=== PATIENT | female | born 1935 | race African-American/Black ===

== ENCOUNTER 2020-11-04 21:36 | Inpatient (IN) | payer MEDICARE, OTHER ==
[~2020-11-04] VITALS: Ht 157.5 cm; Wt 50.3 kg
--- NOTE | 2020-11-04 21:36 | NUR ---
BIBRA FROM [facility] ALTERED MORE THAN USUAL WITH R ARM AND LEG INVOLUTARY MOVEMENT STARTED AT 8:30PM. PT TO BED 6, PT [id number], -SOB, NAD. VSS. PENDING ER PROVIDER KENNETH
--- NOTE | 2020-11-04 22:12 | NUR ---
URINE COLLECTED AND SENT TO LAB, PT WAS TAKEN TO CT
--- NOTE | 2020-11-04 22:12 | NUR ---
pt to ct
[2020-11-04 22:20] LABS: EOSINOPHILS % (AUTO) 1.5 % (0.0-6.0); HEMATOCRIT 36 % (33-45); HEMOGLOBIN 11.7 g/dL (11.5-14.8); LYMPHOCYTES # (AUTO) 1.7 /CMM (0.8-4.8); LYMPHOCYTES % (AUTO) 44.4 % (20.0-44.0); MEAN CORPUSCULAR HGB CONC 33 g/dl (31.0-36.0); MEAN CORPUSCULAR VOLUME 91 fL (82-100); MONOCYTES # (AUTO) 0.3 /CMM (0.1-1.30); NEUTROPHILS # (AUTO) 1.8 /CMM (1.8-8.9); NEUTROPHILS % (AUTO) 45.1 % (43.0-81.0); PLATELET COUNT (AUTO) 268 /CMM (150-450); RED BLOOD CELL COUNT(AUTO) 3.91 MIL/uL (4.0-5.2); WHITE BLOOD COUNT (AUTO) 3.9 K/uL (4.3-11.0)
[2020-11-04 22:31] LABS: CALCIUM, SERUM 8.7 mg/dL (8.5-10.1); CARBON DIOXIDE 28 mmol/L (21-32); CHLORIDE 102 mmol/L (98-107); GLUCOSE 87 mg/dL (74-106); POTASSIUM 3.9 mmol/L (3.5-5.1); SODIUM SERUM 135 mmol/L (136-145); UREA NITROGEN, BLOOD 13 mg/dL (7-18)
[2020-11-04 22:40] LABS: BILIRUBIN,URINE NEGATIVE (NEGATIVE); COLOR,URINE YELLOW (YELLOW); LEUKOCYTE ESTERASE ,URINE LARGE (NEGATIVE); NITRITE, URINE NEGATIVE (NEGATIVE); PROTEIN,URINE 30 mg/dl (NEGATIVE); UGLUCOSE NEGATIVE (NEGATIVE); UROBILINOGEN,URINE 0.2 EU/dL (0.2)
[2020-11-04 22:42] LABS: BACTERIA,URINE Moderate /HPF (None Seen); SQUAMOUS EPITHELIAL CELL,UR Few /HPF (None Seen); WBC,URINE TOO NUMEROUS TO COUN /HPF (0-3)
[2020-11-04 22:45] LABS: ALANINE AMINOTRANSFERASE 13 U/L (12-78); ALBUMIN 2.7 g/dL (3.4-5.0); ALKALINE PHOSPHATASE 72 U/L (46-116); ASPARTATE AMINOTRANSFERASE 15 U/L (15-37); BILIRUBIN,DIRECT 0.1 mg/dL (0.0-0.2); BILIRUBIN,TOTAL 0.4 mg/dL (0.2-1.0)
--- NOTE | 2020-11-04 23:21 | NUR ---
TELE BED: 114-1
--- NOTE | 2020-11-04 23:23 | NUR ---
CALL FROM LAB: COVID NEGATIVE
[2020-11-04] MEDS ORDERED: LEVOFLOXACIN 750 MG /D5W 150ML 150 ML IV ONE (23:28)
[2020-11-04] MEDS ORDERED: LEVOFLOXACIN 750 MG /D5W 150ML PIGGYBACK IV ONE (23:30)
--- NOTE | 2020-11-04 23:34 | NUR ---
update daughter martin re: patient.
[2020-11-05] VITALS: BP 129/49
[2020-11-05] MEDS ORDERED: MAG HYDROX/AL HYDROX/SIMETH 30 ML UDC PO PRN
[2020-11-05] MEDS ORDERED: ACETAMINOPHEN 325 MG TABLET PO PRN
[2020-11-05] MEDS ORDERED: LEVOFLOXACIN 500 MG /D5W 100ML 500 MG in PREMIX 1 EA IV SCH
[2020-11-05] MEDS ORDERED: Z GUARD REMEDY 2 OZ OINT TP PRN
[2020-11-05] MEDS ORDERED: MAGNESIUM HYDROXIDE 30 ML UDC PO PRN
[2020-11-05] MEDS ORDERED: ONDANSETRON HCL/PF 4 MG/2 ML VIAL IVP PRN
--- NOTE | 2020-11-05 | NUR ---
RN OPENING NOTE ADMIT 85 YEAR FEMALE FROM EMERGENCY UNIT TO DEION UNIT ROOM 114,ALERT CONFUSED VERBALLY RESPONSIVE,ON ROOM AIR O2:97% FALL RISK,DIAGNOSIS:ALTERED MENTAL STATUS SECONDARY TO UTI,REDNESS ON PERINEAL AREA AND BUTTOCKS,TOOK PICTURES AND PLACED ON CHART,IV SITE IS IN RIGHT FOREARM INTACT PATENT,BED IN LOW POSITION AND LOCKED,BED ALARM IS ON,SAFETY MEASURE IMPLEMENT CONTINUE TO MONITOR.
[2020-11-05] MEDS ORDERED: CRAN425C6 PO (00:02)
[2020-11-05] MEDS ORDERED: HYDR-4303 PO (00:02)
[2020-11-05] MEDS ORDERED: MIRT-121 PO (00:02)
[2020-11-05] MEDS ORDERED: GUAI100G PO (00:02)
[2020-11-05] MEDS ORDERED: LEVO75TA7 PO (00:02)
[2020-11-05] MEDS ORDERED: LIDO30CR47 TP (00:02)
[2020-11-05] MEDS ORDERED: FLUT9.9S NS (00:02)
[2020-11-05] MEDS ORDERED: DONE10TA11 PO (00:02)
[2020-11-05] MEDS ORDERED: CRAN3875 PO (00:02)
[2020-11-05] MEDS ORDERED: CYCL30DR EACHEYE (00:02)
[2020-11-05] MEDS ORDERED: AMIN30LI27 PO (00:02)
[2020-11-05] MEDS ORDERED: POTA20TA83 PO (00:02)
[2020-11-05] MEDS ORDERED: LOPE2CAP PO (00:02)
[2020-11-05] MEDS ORDERED: MAGN400O21 PO (00:02)
[2020-11-05] MEDS ORDERED: MONT10TA22 PO (00:02)
[2020-11-05] MEDS ORDERED: NYST15CR2 TP (00:02)
[2020-11-05] MEDS ORDERED: FERR325T23 PO (00:02)
[2020-11-05] MEDS ORDERED: GLUC-228 PO (00:02)
[2020-11-05] MEDS ORDERED: LACT30003 PO (00:02)
[2020-11-05] MEDS ORDERED: RHUB4TAB PO (00:02)
[2020-11-05] MEDS ORDERED: FAMO-131 PO (00:02)
[2020-11-05] MEDS ORDERED: CHOL4PAC2 PO (00:02)
[2020-11-05] MEDS ORDERED: MULT-213 PO (00:02)
[2020-11-05] MEDS ORDERED: ALPR0.25 PO (00:02)
[2020-11-05] MEDS ORDERED: OXYB10TA30 PO (00:02)
[2020-11-05] MEDS ORDERED: CALC-883 PO (00:02)
[2020-11-05] MEDS ORDERED: SENN-261 PO (00:02)
[2020-11-05] MEDS ORDERED: HYDR-3980 PO (00:02)
[2020-11-05] MEDS ORDERED: CARB50DR OP (00:02)
[2020-11-05] MEDS ORDERED: ALEN70TA3 PO (00:02)
[2020-11-05] MEDS ORDERED: OMEG1CAP PO (00:02)
--- NOTE | 2020-11-05 00:05 | NUR ---
REPORT GIVEN TO JAMIN AJ FOR ARMANDO PT TRANSPORTED TO 1ST FLOOR
[2020-11-05] MEDS: ENOXAPARIN SODIUM 40 MG/0.4 ML DISP.SYRIN SQ SCH ×2 (00:18→21:34)
--- NOTE | 2020-11-05 03:38 | NUR ---
RN NOTE ASKED PLASTIC EXTRUDING MACHINE OPERATOR ARMANDO JANE ANY IV FLUID FOR THIS PATIENT BECAUSE DIAGNOSIS UTI SHE SAID NO BECAUSE PT HAS SOME CARDIOMEGALY SO DON'T WANT TO PUT IN HF CONTINUE TO MONITOR
[2020-11-05 04:00] VITALS: BP 122/66
[2020-11-05 06:10] LABS: BASOPHILS % (AUTO) 0.7 % (0.0-2.0); EOSINOPHILS % (AUTO) 1.1 % (0.0-6.0); HEMATOCRIT 34 % (33-45); HEMOGLOBIN 11.2 g/dL (11.5-14.8); LYMPHOCYTES # (AUTO) 1.4 /CMM (0.8-4.8); LYMPHOCYTES % (AUTO) 44.2 % (20.0-44.0); MEAN CORPUSCULAR HGB CONC 33 g/dl (31.0-36.0); MEAN CORPUSCULAR VOLUME 91 fL (82-100); MONOCYTES # (AUTO) 0.2 /CMM (0.1-1.30); MONOCYTES % (AUTO) 7.6 % (2.0-12.0); NEUTROPHILS # (AUTO) 1.5 /CMM (1.8-8.9); NEUTROPHILS % (AUTO) 46.4 % (43.0-81.0); PLATELET COUNT (AUTO) 236 /CMM (150-450); RED BLOOD CELL COUNT(AUTO) 3.74 MIL/uL (4.0-5.2); WHITE BLOOD COUNT (AUTO) 3.2 K/uL (4.3-11.0)
--- NOTE | 2020-11-05 06:26 | NUR ---
RN CLOSING NOTE PATIENT REMAINS ON ALERT CONFUSED VERBALLY RESPONSIVE NO SOB NOT ACUTE DISTRESS NOTED,ON ROOM AIR O2:96% IV SITE IS ON RIGHT FOREARM INTACT PATENT,INCONTINENT TO BOWEL/BLADDER,KEPT COMFORTABLE ,SAFETY MEASURE IMPLEMENT,BED ALARM IS ON,ALL NEEDS MET ENDORSE NEXT COMING SHIFT FOR CONTINUATION OF CARE.
[2020-11-05 06:51] LABS: CALCIUM, SERUM 8.2 mg/dL (8.5-10.1); CREATININE 0.8 mg/dL (0.6-1.3); MAGNESIUM 1.9 mg/dL (1.8-2.4); PHOSPHORUS 4.2 mg/dL (2.5-4.9); POTASSIUM 4.6 mmol/L (3.5-5.1)
[2020-11-05 07:05] LABS: THYROID STIMULATING HORMONE 1.681 uIU/mL (0.358-3.74)
--- NOTE | 2020-11-05 07:30 | NUR ---
RN OPENING NOTE Patient is alert and oriented x 1/2. Patient is breathing even and unlabored. Right forearm 18 gauze noted with no s/s of infiltration or s/s of infection. On room air at 97% 02 saturation. Bed is in lowest and locked position. Call light with in reach.
[2020-11-05] MEDS: PANTOPRAZOLE 40 MG TABLET.DR PO SCH (07:53)
[2020-11-05 08:00] VITALS: BP 102/60
[2020-11-05] MEDS ORDERED: FAMOTIDINE (20 MG) 20 MG TABLET PO SCH (11:30)
[2020-11-05] MEDS ORDERED: SENNOSIDES 8.6 MG TABLET PO PRN (11:30)
[2020-11-05] MEDS ORDERED: Medication Not On Formulary EA (Cyclosporine (Restasis) 1 DROP) EACHEYE SCH (11:30)
[2020-11-05] MEDS ORDERED: ALPRAZOLAM 0.25 MG TABLET PO PRN (11:30)
[2020-11-05 12:00] VITALS: BP 112/70
[2020-11-05] MEDS: LEVOTHYROXINE SODIUM 75 MCG TABLET PO SCH (12:02)
[2020-11-05] MEDS: MULTIVIT W/MINERALS 1 TAB TABLET PO SCH (12:03)
[2020-11-05] MEDS: FERROUS SULFATE (325 MG) 325 MG/TAB TABLET PO SCH (12:03)
[2020-11-05] MEDS: OXYBUTYNIN CHLORIDE ER 5 MG TAB PO SCH (12:03)
[2020-11-05] MEDS: CALCIUM CARB 600MG /VIT D 1 EACH TABLET PO SCH (12:04)
[2020-11-05] MEDS: GUAIFENESIN LA 600 MG TABLET.SA PO SCH ×2 (12:04→21:35)
[2020-11-05] MEDS ORDERED: POLYVINYL ALCOHOL/POVIDONE 0.4 ML DROPERETTE EACHEYE SCH (13:00)
[2020-11-05] MEDS: POLYVINYL ALCOHOL 15 ML BOTTLE EACHEYE SCH ×3 (14:40→21:32)
[2020-11-05] MEDS: NYSTATIN/TRIAMCIN CREAM 15 GM TUBE TP SCH (14:41)
[2020-11-05] MEDS: PROSTAT (PYXIS) 30 ML UDC PO SCH (17:00)
[2020-11-05] MEDS: FLUTICASONE PROPIONATE 16 GM BOTTLE NS SCH (17:00)
--- NOTE | 2020-11-05 18:59 | NUR ---
RN CLOSING NOTE Patient is alert and oriented x 1/2. Patient is breathing even and unlabored. No s/s of respiratory distress noted. Patient's hob elevated. Will continue to monitor. Call light with in reach. Will endorse to next shift for ARMANDO.
--- NOTE | 2020-11-05 19:30 | NUR ---
RN OPENING NOTE REC'D PT IN BED, A/O X1, PT RESPONDS TO NAME. ABNORMAL ARM/FACIAL MOVEMENTS, ENDORSED BY DAY SHIFT. PT IS ON ROOM AIR TOLERATING WELL. NO DISTRESS NOTED. ON M/S MONITORING. NO S/S OF PAIN NOTED. IV SITE, FLUSHED. SAFETY MEASURES IN PLACE. HOB ELEVATED TOLERATED. SIDE RAILS UP X2, BED LOCKED IN LOWEST POSITION CALL LIGHT WITHIN REACH. WILL CONT TO MONITOR CLOSELY.
[2020-11-05 20:00] VITALS: BP_SYST 90; BP_SYST 99; BP_DIAS 53; BP_DIAS 69
--- NOTE | 2020-11-05 20:15 | NUR ---
RN NOTE PT DAUGHTERDELANO CALLED FOR UPDATE.
[2020-11-05] MEDS: MONTELUKAST SODIUM (10MG) 10 MG TABLET PO SCH (21:35)
[2020-11-05] MEDS: DONEPEZIL 5 MG TABLET PO SCH (21:35)
[2020-11-05] MEDS: MIRTAZAPINE 15 MG TABLET PO SCH (21:35)
[2020-11-06 04:00] VITALS: BP 102/69
--- NOTE | 2020-11-06 05:08 | NUR ---
MADAI ROLLINS FROM LAB CALLED COVID PCR RESULT NEGATIVE.
--- NOTE | 2020-11-06 06:55 | NUR ---
RN CLOSING NOTES NO CHANGE IN PT CONDITION. PT REMAINS ON ON ROOM AIR. NO S/S OF DISTRESS NOTED. PT COOPERATIVE WITH CARE. SAFETY MEASURES IN PLACE HOB ELEVATED. SIDE RAILS UP X2 BED LOCKED IN LOWEST POSITION WITH BED ALARM PSYCHIATRIC CNS LIGHT WITHIN REACH. WILL ENDORSE TO AM SHIFT FOR CONTINUATION OF CARE.
--- NOTE | 2020-11-06 07:31 | NUR ---
MS RN NOTE PAT IN BED RESTING COMFORTABLY, PT IS ON ROOM AIR TOLERATING WELL ,NO S/S OF PAIN NOTED. LT FA HL IV IN PLACED ,SAFETY MEASURES IN PLACE. HOB ELEVATED TOLERATED. SIDE RAILS UP X2, BED LOCKED IN LOWEST POSITION CALL LIGHT WITHIN REACH. WILL CONT TO MONITOR CLOSELY.
[2020-11-06] MEDS: PANTOPRAZOLE 40 MG TABLET.DR PO SCH (07:47)
[2020-11-06] MEDS: LEVOTHYROXINE SODIUM 75 MCG TABLET PO SCH (07:48)
[2020-11-06] MEDS: GUAIFENESIN LA 600 MG TABLET.SA PO SCH ×2 (08:50→21:49)
[2020-11-06] MEDS: OXYBUTYNIN CHLORIDE ER 5 MG TAB PO SCH (08:50)
[2020-11-06] MEDS: FERROUS SULFATE (325 MG) 325 MG/TAB TABLET PO SCH (08:51)
[2020-11-06] MEDS: MULTIVIT W/MINERALS 1 TAB TABLET PO SCH (08:51)
[2020-11-06] MEDS: PROSTAT (PYXIS) 30 ML UDC PO SCH (08:51)
[2020-11-06] MEDS: NYSTATIN/TRIAMCIN CREAM 15 GM TUBE TP SCH (08:52)
[2020-11-06] MEDS: POLYVINYL ALCOHOL 15 ML BOTTLE EACHEYE SCH ×4 (08:52→21:46)
[2020-11-06] MEDS: CALCIUM CARB 600MG /VIT D 1 EACH TABLET PO SCH (08:53)
[2020-11-06] MEDS: FLUTICASONE PROPIONATE 16 GM BOTTLE NS SCH ×2 (08:59→16:59)
--- NOTE | 2020-11-06 10:09 | NUR ---
ms rn note seen by pt able to to do pt eval ,able to exercise in bed
[2020-11-06] MEDS: ENSURE ENLIVE 237 ML LIQUID (VANILLA) PO SCH ×2 (12:10→17:00)
--- NOTE | 2020-11-06 14:30 | NUR ---
ms rn note patient is mrsa nares called to marcello Mendez rn dnp ok to place Bactroban oint ,order carried out
[2020-11-06 16:00] VITALS: BP 106/77
[2020-11-06] MEDS: MUPIROCIN OINT 2% 22 GM TUBE TP SCH (17:00)
--- NOTE | 2020-11-06 18:00 | NUR ---
MS RN NOTE ALL NEEDS ATTENDED ,HAVING DINNER , ABLE TO EAT SELF
--- NOTE | 2020-11-06 18:33 | NUR ---
MS RN NOTE PATIENT IN BED ALERT WITH CONFUSION , ON RA ,NO SOB NOTED AT THIS TIME, BED IN LOWEST AND LOCKED POSITION , CALL LIGHT WITHIN REACH,, WILL CONT TO MONITOR
[2020-11-06 20:00] VITALS: BP 111/93
[2020-11-06] MEDS: MONTELUKAST SODIUM (10MG) 10 MG TABLET PO SCH (21:49)
[2020-11-06] MEDS: DONEPEZIL 5 MG TABLET PO SCH (21:49)
[2020-11-06] MEDS: ENOXAPARIN SODIUM 40 MG/0.4 ML DISP.SYRIN SQ SCH (21:50)
[2020-11-06] MEDS: MIRTAZAPINE 15 MG TABLET PO SCH (21:55)
[2020-11-07] MEDS ORDERED: LEVOFLOXACIN 750 MG /D5W 150ML 750 MG in PREMIX 1 EA IV SCH
[2020-11-07 04:00] VITALS: BP 119/65
--- NOTE | 2020-11-07 05:01 | NUR ---
RN notes In bed resting comfortably with no distress noted. On room air, tolerating well. Breathing even and unlabored. Alert with confusion and disorientation. No complaint of pain or discomfort. No significant change of condition. Kept clean and dry. W8ill endorse to next shift for continuity of care.
[2020-11-07 06:29] LABS: BASOPHILS % (AUTO) 0.6 % (0.0-2.0); EOSINOPHILS % (AUTO) 1.6 % (0.0-6.0); HEMATOCRIT 33 % (33-45); HEMOGLOBIN 10.9 g/dL (11.5-14.8); LYMPHOCYTES # (AUTO) 1.3 /CMM (0.8-4.8); LYMPHOCYTES % (AUTO) 40.1 % (20.0-44.0); MEAN CORPUSCULAR HGB CONC 33 g/dl (31.0-36.0); MEAN CORPUSCULAR VOLUME 91 fL (82-100); MONOCYTES # (AUTO) 0.3 /CMM (0.1-1.30); MONOCYTES % (AUTO) 10.2 % (2.0-12.0); NEUTROPHILS # (AUTO) 1.5 /CMM (1.8-8.9); NEUTROPHILS % (AUTO) 47.5 % (43.0-81.0); PLATELET COUNT (AUTO) 230 /CMM (150-450); RED BLOOD CELL COUNT(AUTO) 3.65 MIL/uL (4.0-5.2); WHITE BLOOD COUNT (AUTO) 3.2 K/uL (4.3-11.0)
[2020-11-07 06:53] LABS: CALCIUM, SERUM 8.2 mg/dL (8.5-10.1); CARBON DIOXIDE 27 mmol/L (21-32); CHLORIDE 105 mmol/L (98-107); CREATININE 0.5 mg/dL (0.6-1.3); GLUCOSE 99 mg/dL (74-106); MAGNESIUM 1.8 mg/dL (1.8-2.4); PHOSPHORUS 3.8 mg/dL (2.5-4.9); POTASSIUM 3.7 mmol/L (3.5-5.1); SODIUM SERUM 139 mmol/L (136-145); UREA NITROGEN, BLOOD 15 mg/dL (7-18)
[2020-11-07] MEDS: LEVOTHYROXINE SODIUM 75 MCG TABLET PO SCH (07:30)
[2020-11-07] MEDS: PANTOPRAZOLE 40 MG TABLET.DR PO SCH (07:30)
--- NOTE | 2020-11-07 07:50 | NUR ---
RN OPENING NOTE PATIENT IS CURRENTLY IN BED WITH HOB AT SEMI FOWLERS POSITION. PATIENT IS ON ROOM AIR WITH NO SIGNS OF LABORED BREATHING. PATIENT IS AOX1. LFA #22 IS PATENT AND INTACT. BED IS LOCKED IN THE LOWEST POSITION, 3 GUARD RAILS RAISED, CALL ROOT WITHIN REACH, AND ALL HOSPITAL SAFETY PRECAUTIONS ARE BEING FOLLOWED. WILL CONTINUE TO MONITOR THROUGHOUT SHIFT.
[2020-11-07 08:00] VITALS: BP 129/57
[2020-11-07] MEDS: GUAIFENESIN LA 600 MG TABLET.SA PO SCH (08:10)
[2020-11-07] MEDS: CALCIUM CARB 600MG /VIT D 1 EACH TABLET PO SCH (08:10)
[2020-11-07] MEDS: OXYBUTYNIN CHLORIDE ER 5 MG TAB PO SCH (08:11)
[2020-11-07] MEDS: MULTIVIT W/MINERALS 1 TAB TABLET PO SCH (08:11)
[2020-11-07] MEDS: FERROUS SULFATE (325 MG) 325 MG/TAB TABLET PO SCH (08:11)
[2020-11-07] MEDS: POLYVINYL ALCOHOL 15 ML BOTTLE EACHEYE SCH ×2 (08:30→13:08)
[2020-11-07] MEDS: FLUTICASONE PROPIONATE 16 GM BOTTLE NS SCH (08:30)
[2020-11-07] MEDS: MUPIROCIN OINT 2% 22 GM TUBE TP SCH (08:31)
[2020-11-07] MEDS: NYSTATIN/TRIAMCIN CREAM 15 GM TUBE TP SCH (08:31)
[2020-11-07] MEDS: ENSURE ENLIVE 237 ML LIQUID (VANILLA) PO SCH (08:31)
[2020-11-07] MEDS ORDERED: CEFT1VIA55 IV (09:25)
[2020-11-07] MEDS ORDERED: CEFTAZIDIME 1 G in IV D5W 50 ML IV SCH (10:00)
--- NOTE | 2020-11-07 11:30 | NUR ---
RN NOTE REPORT GIVEN TO MADAI RATLIFF FOR ARMANDO POST DC.
--- NOTE | 2020-11-07 12:10 | NUR ---
WOUND CARE CONSULT: PT PRESENTS WITH BLANCHABLE REDNESS TO SACRUM AND SOME PINK DISCOLORATION TO PERINEUM, PRESENT ON ADMISSION. RECOMMENDATIONS MADE FOR SKIN PROTECTION. DISCUSSED WITH NURSING STAFF. PT IS INCONTINENT. MD IN AGREEMENT WITH PLAN OF CARE.
--- NOTE | 2020-11-07 14:12 | NUR ---
RN NOTE PATIENT DISCHARGED IN STABLE CONDITION WITH business intelligence etl developer.
[2020-11-08] MEDS ORDERED: ALENDRONATE 70 MG TABLET PO SCH (09:00)
== END 2020-11-07 14:15 | DRG 689 ==
LOC: ER 21:39 → TELE1 23:24 → MEDSG1 11-05 07:48
PROVIDERS: ADMIT Nurse Practitioner Acute Care; ATTEND Nurse Practitioner Acute Care
DX: N39.0 Urinary tract infection, site not specified (principal); G93.41 Metabolic encephalopathy; Z16.24 Resistance to multiple antibiotics; J98.11 Atelectasis; J90 Pleural effusion, not elsewhere classified; F32.9 Major depressive disorder, single episode, unspecified; D63.8 Anemia in other chronic diseases classified elsewhere; E03.9 Hypothyroidism, unspecified; K21.9 Gastro-esophageal reflux disease without esophagitis; F03.90 Unspecified dementia, unspecified severity, without behavioral disturbance, psychotic disturbance, mood disturbance, and anxiety; E78.5 Hyperlipidemia, unspecified; M81.0 Age-related osteoporosis without current pathological fracture; M19.90 Unspecified osteoarthritis, unspecified site; Z96.642 Presence of left artificial hip joint; Z66 Do not resuscitate; Z79.83 Long term (current) use of bisphosphonates; B96.20 Unspecified Escherichia coli [E. coli] as the cause of diseases classified elsewhere; Z98.890 Other specified postprocedural states
CPT/HCPCS: 36415; 70450-TC; 71045-TC; 80048-TC; 80061-TC; 80076-TC; 81001; 83605-TC; 83735-TC; 84100-TC; 84443-TC; 84484-TC; 85025-TC; 85730-TC; 87040-TC; 87081-TC; 87086-TC; 87186-TC; 97110-TC; 97112-TC; 97530-TC; A4216; C9803; G0378; J0713; J1650; J1956; J7050; J7060; U0003